=== PATIENT | female | born 1950 | race Two or more races ===

== ENCOUNTER 2022-02-18 16:36 | Emergency (ER) | payer SELFPAY ==
[~2022-02-18] VITALS: Ht 152.4 cm; Wt 62.6 kg
[2022-02-18] MEDS ORDERED: fentaNYL CITRATE 100 MCG/2 ML VL IV ONE (17:15)
[2022-02-18] MEDS ORDERED: KETOROLAC TROMETH 30 MG/ML 1ML VIAL IV ONE (17:15)
[2022-02-18] MEDS ORDERED: HYDROcodone-ACET 10/325MG TAB PO ONE (20:30)
[2022-02-18 20:32] VITALS: BP 161/69
[2022-02-18] MEDS ORDERED: HYDR1TAB97 PO (21:02)
[2022-02-18] MEDS ORDERED: IBUP800T27 PO (21:02)
== END 2022-02-18 21:58 | disposition home or self-care (01) ==
LOC: EDBD 16:36 → ER 16:36
DX: S32.010A Wedge compression fracture of first lumbar vertebra, initial encounter for closed fracture (principal); S23.3XXA Sprain of ligaments of thoracic spine, initial encounter; S80.12XA Contusion of left lower leg, initial encounter; S80.11XA Contusion of right lower leg, initial encounter; S40.012A Contusion of left shoulder, initial encounter; M47.897 Other spondylosis, lumbosacral region; I10 Essential (primary) hypertension; Z90.710 Acquired absence of both cervix and uterus; V43.52XA Car driver injured in collision with other type car in traffic accident, initial encounter; Y93.89 Activity, other specified; Y92.410 Unspecified street and highway as the place of occurrence of the external cause; Y99.8 Other external cause status
CPT/HCPCS: 72125; 72128; 72131; 73030; 73060; 73590; 96374; 99284; J1885